=== PATIENT | male | born 1995 | race Caucasian/White ===

== ENCOUNTER 2019-07-06 19:00 | Emergency (ER) | payer BC ==
[2019-07-06 19:40] LABS: BILIRUBIN,URINE NEGATIVE (NEGATIVE); GLUCOSE, URINE (UA) NEGATIVE (NEGATIVE); KETONES,URINE (UA) NEGATIVE (NEGATIVE); LEUKOCYTE ESTERASE, URINE NEGATIVE (NEGATIVE); NITRITE,URINE NEGATIVE (NEGATIVE); OCCULT BLOOD,URINE NEGATIVE (NEGATIVE); PROTEIN,URINE NEGATIVE (NEGATIVE); UROBILINOGEN,URINE 0.2 (NORMAL) E.U./dL (NORMAL)
[2019-07-06 19:41] LABS: CLARITY,URINE CLEAR (CLEAR)
[2019-07-06 22:07] LABS: BASOPHILS % (AUTO) 0.3 %; EOSINOPHILS # (AUTO) 0.1 10^3/uL (0.0-0.7); EOSINOPHILS % (AUTO) 1.7 %; HGB - HEMOGLOBIN 14.4 g/dL (14.0-18.0); LYMPHOCYTES # (AUTO) 1.2 10^3/uL (1.5-3.5); LYMPHOCYTES % (AUTO) 17.4 %; MEAN CORPUSCULAR HEMOGLOBIN 30.5 pg (27.0-31.0); MEAN CORPUSCULAR HGB CONC 34.3 g/dL (32.0-36.0); MEAN PLATELET VOLUME 9.3 fL (7.4-11.4); MONOCYTES # (AUTO) 0.9 10^3/uL (0.0-1.0); MONOCYTES % (AUTO) 12.5 %; NEUTROPHILS # (AUTO) 4.8 10^3/uL (1.5-6.6); NEUTROPHILS % (AUTO) 67.5 %; PLT - PLATELET COUNT 193 10^3/uL (130-450); RED BLOOD COUNT 4.72 10^6/uL (4.70-6.10); RED CELL DISTRIBUTION WIDTH 11.9 % (12.0-15.0); WHITE BLOOD COUNT 7.1 x10^3/uL (4.8-10.8)
[2019-07-06 22:20] LABS: ALBUMIN 3.7 g/dL (3.2-5.5); ALBUMIN/GLOBULIN RATIO 1.4 (1.0-2.2); BILIRUBIN,TOTAL 1.3 mg/dL (0.2-1.0); CALCIUM 8.7 mg/dL (8.5-10.3); CREATININE 0.9 mg/dL (0.6-1.2); TOTAL PROTEIN 6.3 g/dL (6.7-8.2)
--- NOTE | 2019-07-06 22:37 | ED Physician Documentation ---
History of Present Illness - Stated complaint Stated Complaint: FEVER/DIAH/HEADACHE/SWEATS - Chief complaint Chief Complaint: Abd Pain - Additonal information Additional information: This is a 23-year-old male who presents with diarrhea sweating and some intermittent abdominal cramping for 6 days. Patient drank some raw milk around 1 week ago, he also states that he ate some raw [place] within the last several weeks. He began having diarrhea 6 days ago which is watery, nonbloody, and occuring 15 or more times daily. He has been able to drink water, initially had some cramping in his abdomen, this has improved somewhat. He denies any vomiting, has no nausea at this time. He states he did have a fever, but has not had any fever since Thursday. No one else in his house has been sick. Review of Systems Constitutional: reports: Fever Respiratory: denies: Dyspnea GI: denies: Vomiting Skin: denies: Rash PD PAST MEDICAL HISTORY - Past Medical History GI: Other (Denies a history of chronic diarrhea or signficiant food borne illness) - Present Medications Home Medications: Ambulatory Orders Medication Instructions Recorded Confirmed Azithromycin [Zithromax] 500 mg PO DAILY #6 tablet 07/06/19 - Allergies Allergies/Adverse Reactions: Allergies Allergy/AdvReac Type Severity Reaction Status Date / Time No Known Drug Allergies Allergy Verified 07/06/19 19:08 - Living Situation Living Arrangement: reports: At home - Family History Family history: reports: Non contributory PD ED PE NORMAL - Vitals Vital signs reviewed: Yes - General General: Alert and oriented X 3, No acute distress - HEENT HEENT: PERRL - Neck Neck: Supple, no meningeal sign - Cardiac Cardiac: RRR, No murmur - Respiratory Respiratory: Clear bilaterally - Abdomen Abdomen: Soft, Non tender, Non distended - Derm Derm: Warm and dry - Extremities Extremities: No deformity - Neuro Neuro: Alert and oriented X 3 - Psych Psych: Normal mood, Normal affect Results - Vitals Vitals: Vital Signs - 24 hr 07/06/19 07/06/19 07/06/19 19:05 21:07 22:49 Temperature 36.4 C L Heart Rate 75 83 56 L Respiratory 20 18 14 Rate Blood Pressure 143/80 H 131/74 H 132/77 H O2 Saturation 99 98 100 Oxygen O2 Source Room air - Labs Labs: Microbiology 07/06/19 19:30 Campylobacter Antigen Assay - Final Stool Laboratory Tests 07/06/19 07/06/19 07/06/19 19:30 22:01 22:01 WBC 7.1 RBC 4.72 Hgb 14.4 Hct 42.0 MCV 89.0 MCH 30.5 MCHC 34.3 RDW 11.9 L Plt Count 193 MPV 9.3 Neut # (Auto) 4.8 Lymph # (Auto) 1.2 L [place] # (Auto) 0.9 Eos # (Auto) 0.1 Baso # (Auto) 0.0 Absolute Nucleated RBC 0.00 Nucleated RBC % 0.0 Sodium 139 Potassium 3.4 L Chloride 103 Carbon Dioxide 26 Anion Gap 10.0 BUN 20 Creatinine 0.9 Estimated GFR (MDRD) 105 Glucose 115 H Calcium 8.7 Total Bilirubin 1.3 H AST 36 ALT 32 Alkaline Phosphatase 64 Total Protein 6.3 L Albumin 3.7 Globulin 2.6 Albumin/Globulin Ratio 1.4 Lipase 28 Urine Color YELLOW Urine Clarity CLEAR Urine pH 5.0 Ur Specific [place] 1.025 Urine Protein NEGATIVE Urine Glucose (UA) NEGATIVE Urine Ketones NEGATIVE Urine Occult Blood NEGATIVE Urine Nitrite NEGATIVE Urine Bilirubin NEGATIVE Urine Urobilinogen 0.2 (NORMAL) Ur Leukocyte Esterase NEGATIVE Ur Microscopic Review NOT INDICATED Urine Culture Comments NOT INDICATED PD MEDICAL DECISION MAKING - ED course Complexity details: considered differential (Viral gastroenteritis, bacterial gastroenteritis, Salmonella, Shigella, Campylobacter, inflammatory bowel disease, irritable bowel syndrome, food poisoning) ED course: Patient is nontoxic-appearing, has benign abdominal exam. His vital signs are unremarkable. Labs were obtained and are notable for mild hypokalemia, otherwise unremarkable. Stool culture was sent, this was positive for Campylobacter jejuni. I discussed with patient that he appears to have Campylobacter enteritis. He is able to eat and drink without issue, and does appear safe for outpatient follow-up. Given his symptoms have been going on for 1 week, and patient has significant diarrhea and symptoms still, we will treat him with a course of azithromycin, first dose was given here and patient will complete a 3-day course. If his stool culture is positive for other organisms requiring different treatment he will be called. I discussed return precautions including blood in his vomit or stool, severe abdominal pain, persistent vomiting, or any other concerning symptoms. Patient agreed and was discharged home Departure - Departure Disposition: 01 Home, Self Care Clinical Impression: Campylobacter diarrhea Condition: Good Instructions: ED Gastroenteritis Bacterial Follow-Up: Provider,Other [Primary Care Provider] - As Needed (For any persistent symptoms) Prescriptions: Azithromycin [Zithromax] 500 mg PO DAILY #6 tablet Comments: Your stool culture is positive for Campylobacter, which is a bacterial infection that is likely causing your symptoms. Please take the antibiotic as prescribed, and continue to hydrate well. If you develop severe abdominal pain, blood in your stool, or other concerning symptoms return to the emergency department. Otherwise please follow-up with your primary care provider as needed. Discharge Date/Time: 07/06/19 22:49
[2019-07-06] MEDS ORDERED: AZITHROMYCIN 250 MG TABLET PO STA (22:39)
[2019-07-06 22:51] VITALS: BP 132/77
== END 2019-07-06 22:49 | disposition home or self-care (01) ==
LOC: ED 19:00
DX: A04.5 Campylobacter enteritis (principal); E87.6 Hypokalemia
CPT/HCPCS: 36415; 80053; 81003; 83690; 85025; 87045; 87046; 99283; 99284; A9270; 81001; 87086